=== PATIENT | female | born 1970 | race Caucasian/White ===

== ENCOUNTER 2016-11-02 11:54 | Emergency (ER) | payer OTHER ==
[~2016-11-02] VITALS: Ht 167.6 cm; Wt 62.0 kg
[2016-11-02] MEDS ORDERED: SODIUM CHLORIDE 0.9% 1,000 ML IV ONE (12:18)
[2016-11-02] MEDS ORDERED: SODIUM CHLORIDE FLUSH 10ML SYR IVF ONE (12:30)
[2016-11-02] MEDS ORDERED: METOCLOPRAMIDE 5 MG/ML, 2ML IVPush ONE (12:30)
[2016-11-02] MEDS ORDERED: SODIUM CHLORIDE 0.9% 1,000ML IVBOLUS ONE (12:30)
[2016-11-02] MEDS ORDERED: ONDANSETRON 2MG/ML, 2ML IVPush ONE (12:30)
[2016-11-02] MEDS ORDERED: KETOROLAC 30 MG/1 ML IVPush ONE (12:30)
[2016-11-02 13:17] LABS: ASPARTATE AMINO TRANSFERASE 15 U/L (15-37); BLOOD UREA NITROGEN 14 mg/dL (7-18)
[2016-11-02] MEDS ORDERED: ONDANSETRON 2MG/ML, 2ML ONE (13:26)
[2016-11-02] MEDS ORDERED: METOCLOPRAMIDE 5 MG/ML, 2ML ONE (13:26)
[2016-11-02] MEDS ORDERED: KETOROLAC 30 MG/1 ML ONE (13:26)
[2016-11-02 15:06] VITALS: BP 113/68
== END 2016-11-02 15:09 | disposition home or self-care (01) ==
LOC: ED 14:27
DX: G81.90 Hemiplegia, unspecified affecting unspecified side (principal); G43.109 Migraine with aura, not intractable, without status migrainosus
CPT/HCPCS: 36415; 70450; 71010; 80053; 84703; 85025; 93005; 96361; 96374; 96375; 99285; J1885; J2405; J2765; J7030